=== PATIENT | male | born 2000 | race Caucasian/White ===

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

== ENCOUNTER → 2019-05-09 | Outpatient (CLI) | payer OTHER ==
[~2019-05-09] MED LIST: PROAAER10 INH; XARE15TA PO
[2019-05-13 11:35] LABS: DRVV SCREEN 130.6 SEC
[2019-05-13 11:40] LABS: PTT LUPUS TYPE ANTICOAG SCREEN 3.1 (0-1.2)
[2019-05-13 11:49] LABS: LUPUS CONFIRM RATIO 2.1
[2019-05-13 11:53] LABS: NORMALIZED RATIO 1.48 (0.00-1.20)
[2019-05-15 00:06] LABS: ANA (HEP2) Negative (.); ANTI THROMBIN 3 ANTIGEN IMMUNO 97 % (72-124); ANTI THROMBIN 3 FUNCT ACTIVITY 140 % (75-135); CARDIOLIPIN IGA ANTIBODY <9 APL U/mL (0-11); CARDIOLIPIN IGG ANTIBODY <9 GPL U/mL (0-14); CARDIOLIPIN IGM ANTIBODY <9 MPL U/mL (0-12); FACTOR II ACTIVITY 97 % (50-154); HCG SERUM TUMOR MARKER QUANT < 1 mIU/mL (0-3); PROTEIN C FUNCTIONAL ACTIVITY 119 % (73-180); PROTEIN S ANTIGEN FREE 97 % (57-157); PROTEIN S ANTIGEN TOTAL 71 % (60-150); PROTEIN S FUNCTIONAL ACTIVITY 148 % (63-140)
== END ==
LOC: M PLALAB 11:09
PROVIDERS: ATTEND Internal Medicine Pulmonary Disease
DX: I26.99 Other pulmonary embolism without acute cor pulmonale (principal)

== ENCOUNTER → 2019-05-21 | Outpatient (CLI) | payer OTHER | LOC: M CARPUL 10:54 | PROVIDERS: ATTEND Internal Medicine Pulmonary Disease | DX: I26.99 Other pulmonary embolism without acute cor pulmonale (principal) ==

== ENCOUNTER → 2019-06-10 | Outpatient (REF) | payer OTHER ==
[2019-06-10 17:48] LABS: BASO # 0.1 10^3/uL (0.0-0.2); BASO % 1.1 % (0.0-1.0); EOS # 0.2 10^3/uL (0.0-0.5); EOS % 2.3 % (0.0-3.0); HEMATOCRIT 46.7 % (42.0-52.0); HEMOGLOBIN 15.2 g/dl (13.5-17.5); LYMPH # 1.9 10^3/uL (1.5-5.0); LYMPH % 28.5 % (24.0-44.0); MEAN CORPUSCULAR HEMOGLOBIN 29.7 pg (27.0-33.0); MEAN CORPUSCULAR HGB CONC 32.5 g/dl (32.0-36.5); MEAN CORPUSCULAR VOLUME 91.4 fl (80.0-96.0); MONO # 0.7 10^3/uL (0.0-0.8); MONO % 11.3 % (0.0-5.0); NEUTROPHILS # 3.7 10^3/uL (1.5-8.5); NEUTROPHILS % 56.5 % (36.0-66.0); PLATELET COUNT, AUTOMATED 287 10^3/uL (150-450); RED BLOOD COUNT 5.11 10^6/uL (4.30-6.10); WHITE BLOOD COUNT 6.6 10^3/uL (4.0-10.0)
[2019-06-10 18:09] LABS: BLOOD UREA NITROGEN 14 MG/DL (7-18); CALCIUM LEVEL 8.8 MG/DL (8.5-10.1); CARBON DIOXIDE LEVEL 22 MEQ/L (21-32); CHLORIDE LEVEL 107 MEQ/L (98-107); CREATININE FOR GFR 1.15 MG/DL (0.70-1.30); GLUCOSE, FASTING 74 MG/DL (70-100); POTASSIUM SERUM 4.4 MEQ/L (3.5-5.1); SODIUM LEVEL 138 MEQ/L (136-145)
== END ==
LOC: M LAB REF 16:50
PROVIDERS: ATTEND Internal Medicine Pulmonary Disease
DX: I26.99 Other pulmonary embolism without acute cor pulmonale (principal)

== ENCOUNTER → 2019-07-08 | Outpatient (CLI) | payer OTHER ==
[~2019-07-08] MED LIST changes: +METHACHOLINE KIT (J7674) INH ONE
--- NOTE | 2019-07-08 10:47 | PFTRPT ---
Visit Date: 07/08/2019 Referring Doctor: Jazzmine Samaniego MD Height: 72.00 Inches Weight: 160.00 Lbs BSA: 1.94 Diagnosis: R06.2 Study of excellent technical quality. Under protocol, methacholine was administered. At a dose of 2.5 mg or 13.875 CDUs, a 30% decline in the FEV1 was noted. PC of 0.53 is significant. Flow rates did return to near baseline post- bronchodilator administration. IMPRESSION: Positive methacholine challenge study. MTDD
== END ==
LOC: M CARPUL 09:56
PROVIDERS: ATTEND Internal Medicine Pulmonary Disease
DX: R06.2 Wheezing (principal); I26.99 Other pulmonary embolism without acute cor pulmonale
CPT/HCPCS: 94070; J7674

== ENCOUNTER 2020-10-05 23:09 | Emergency (ER) | payer OTHER, SELFPAY ==
[~2020-10-05] VITALS: Ht 182.9 cm; Wt 76.7 kg
[~2020-10-05 23:09] MED LIST changes: -METHACHOLINE KIT (J7674) INH ONE
[2020-10-05] MEDS ORDERED: MORPHINE 4 MG/ML 1ML VIAL/SYRINGE (J2270) IV ONE (23:55)
[2020-10-06 00:17] LABS: BASO # 0.1 10^3/uL (0.0-0.2); BASO % 0.9 % (0.0-1.0); EOS # 0.2 10^3/uL (0.0-0.5); EOS % 1.8 % (0.0-3.0); HEMATOCRIT 46.4 % (42.0-52.0); HEMOGLOBIN 15.6 g/dl (13.5-17.5); LYMPH # 2.6 10^3/uL (1.5-5.0); LYMPH % 25.1 % (24.0-44.0); MEAN CORPUSCULAR HEMOGLOBIN 30.2 pg (27.0-33.0); MEAN CORPUSCULAR HGB CONC 33.6 g/dl (32.0-36.5); MEAN CORPUSCULAR VOLUME 89.7 fl (80.0-96.0); MONO % 9.8 % (2.0-8.0); NEUTROPHILS # 6.3 10^3/uL (1.5-8.5); NEUTROPHILS % 61.9 % (36.0-66.0); PLATELET COUNT, AUTOMATED 339 10^3/uL (150-450); RED BLOOD COUNT 5.17 10^6/uL (4.30-6.10); WHITE BLOOD COUNT 10.2 10^3/uL (4.0-10.0)
[2020-10-06 00:20] LABS: PARTIAL THROMBOPLASTIN TIME 25.9 SECONDS (24.2-38.5); PROTHROMBIN TIME 13.4 SECONDS (12.5-14.3)
--- NOTE | 2020-10-06 00:24 | REPVR ---
PROCEDURE INFORMATION: Exam: XR Left Elbow Exam date and time: 10/05/2020 11:41 PM Age: 20 years old Clinical indication: Pain; Elbow; Left; Additional info: Trauma TECHNIQUE: Imaging protocol: XR Left elbow. Views: 3 or more views. COMPARISON: No relevant prior studies available. FINDINGS: Bones/joints: Displaced fracture through the base of the olecranon process, extending to the joint space. Diastasis of the fracture fragments by approximately 1.5 cm. No dislocation. Soft tissues: Soft tissue swelling. IMPRESSION: Olecranon fracture, as described above. Electronically signed by: Deven Trevino On 10/06/2020 00:24:00 AM
[2020-10-06 00:25] LABS: ERYTHROCYTE SEDIMENTATION RATE 1 mm/hr (0-15)
[2020-10-06 00:38] LABS: ALBUMIN 4.7 GM/DL (3.2-5.2); ALT/SGPT 44 U/L (12-78); BILIRUBIN,DIRECT 0.3 MG/DL (0.0-0.2); BILIRUBIN,TOTAL 2.1 MG/DL (0.2-1.0); BLOOD UREA NITROGEN 20 MG/DL (7-18); CALCIUM LEVEL 10.2 MG/DL (8.5-10.1); CARBON DIOXIDE LEVEL 31 MEQ/L (21-32); CHLORIDE LEVEL 105 MEQ/L (98-107); CREATININE FOR GFR 1.55 MG/DL (0.70-1.30); GLOMERULAR FILTRATION RATE > 60.0 (>60); GLUCOSE, FASTING 59 MG/DL (70-100); POTASSIUM SERUM 3.9 MEQ/L (3.5-5.1); SODIUM LEVEL 140 MEQ/L (136-145); TOTAL PROTEIN 7.9 GM/DL (6.4-8.2)
[2020-10-06] MEDS ORDERED: D5W 1,000 ML IV SCH (00:50)
[2020-10-06 00:56] LABS: RSV AMPLIFICATION NEGATIVE (NEGATIVE)
[2020-10-06 01:32] VITALS: BP 131/67
== END 2020-10-06 01:39 | disposition short-term general hospital (02) ==
LOC: M ED 23:09
DX: S52.022A Displaced fracture of olecranon process without intraarticular extension of left ulna, initial encounter for closed fracture (principal); W10.8XXA Fall (on) (from) other stairs and steps, initial encounter; Y92.018 Other place in single-family (private) house as the place of occurrence of the external cause
CPT/HCPCS: 73080; 80048; 80076; 85025; 85610; 85652; 85730; 86140; 86850; 86900; 86901; 87631; 96374; 99284; J2270

== ENCOUNTER → 2021-03-03 | Outpatient (REF) ==
--- NOTE | 2021-03-04 06:12 | REP ---
INDICATION: SOB COMPARISON: 12/11/2018 TECHNIQUE: PA and lateral. FINDINGS: The mediastinum and cardiac silhouette are normal. The lung panchal are clear and without acute consolidation, effusion, or pneumothorax. The skeletal structures are intact and normal. IMPRESSION: No acute cardiopulmonary process. <Electronically signed by Memo Pinto > 03/04/21 [id number]
== END ==
LOC: M PLAIMG 11:55
PROVIDERS: ATTEND Internal Medicine
DX: R06.02 Shortness of breath (principal)

== ENCOUNTER → 2022-07-31 | Outpatient (REF) | payer OTHER ==
[2022-07-31 13:29] LABS: BASO % 0.5 % (0.0-1.0); EOS # 0.2 10^3/uL (0.0-0.5); EOS % 2.7 % (0.0-3.0); HEMATOCRIT 45.4 % (42.0-52.0); HEMOGLOBIN 15.2 g/dl (13.5-17.5); LYMPH # 1.8 10^3/uL (1.5-5.0); LYMPH % 30.1 % (24.0-44.0); MEAN CORPUSCULAR HEMOGLOBIN 29.6 pg (27.0-33.0); MEAN CORPUSCULAR HGB CONC 33.5 g/dl (32.0-36.5); MEAN CORPUSCULAR VOLUME 88.3 fl (80.0-96.0); MONO # 1.2 10^3/uL (0.0-0.8); MONO % 19.5 % (2.0-8.0); NEUTROPHILS # 2.8 10^3/uL (1.5-8.5); NEUTROPHILS % 46.9 % (36.0-66.0); PLATELET COUNT, AUTOMATED 240 10^3/uL (150-450); RED BLOOD COUNT 5.14 10^6/uL (4.30-6.10); WHITE BLOOD COUNT 5.9 10^3/uL (4.0-10.0)
[2022-07-31 14:10] LABS: ALBUMIN 3.8 G/DL (3.2-5.2); ALKALINE PHOSPHATASE 99 U/L (46-116); ALT/SGPT 42 U/L (7.0-40); AST/SGOT 25 U/L (<34); BLOOD UREA NITROGEN 12 MG/DL (9-23); CALCIUM LEVEL 8.5 MG/DL (8.5-10.1); CARBON DIOXIDE LEVEL 26 MMOL/L (20-31); CHLORIDE LEVEL 104 MMOL/L (98-107); FREE T4 0.91 NG/DL (0.89-1.76); GLOMERULAR FILTRATION RATE > 60.0 (>60); GLUCOSE, FASTING 80 MG/DL (60-100); SODIUM LEVEL 136 MMOL/L (136-145); THYROID STIMULATING HORMONE 2.191 uIU/ML (0.55-4.78); TOTAL 25(OH) VITAMIN D 15.2 NG/ML (20.0-100.0); TOTAL PROTEIN 6.7 G/DL (5.7-8.2)
== END ==
LOC: M LAB REF 12:05
PROVIDERS: ATTEND Nurse Practitioner Family
DX: E55.9 Vitamin D deficiency, unspecified (principal); R53.83 Other fatigue

== ENCOUNTER → 2022-09-11 | Outpatient (REF) | payer BC ==
[2022-09-11 17:37] LABS: BASO # 0.1 10^3/uL (0.0-0.2); BASO % 1.1 % (0.0-1.0); EOS # 0.3 10^3/uL (0.0-0.5); EOS % 2.8 % (0.0-3.0); HEMATOCRIT 49.2 % (42.0-52.0); HEMOGLOBIN 16.3 g/dl (13.5-17.5); LYMPH # 2.9 10^3/uL (1.5-5.0); LYMPH % 32.6 % (24.0-44.0); MEAN CORPUSCULAR HEMOGLOBIN 30.3 pg (27.0-33.0); MEAN CORPUSCULAR HGB CONC 33.1 g/dl (32.0-36.5); MEAN CORPUSCULAR VOLUME 91.4 fl (80.0-96.0); MONO # 0.9 10^3/uL (0.0-0.8); MONO % 9.5 % (2.0-8.0); NEUTROPHILS # 4.8 10^3/uL (1.5-8.5); NEUTROPHILS % 53.3 % (36.0-66.0); PLATELET COUNT, AUTOMATED 400 10^3/uL (150-450); RED BLOOD COUNT 5.38 10^6/uL (4.30-6.10)
[2022-09-11 17:58] LABS: C REACTIVE PROTEIN QUANTITATIV < 0.40 MG/DL (<1.0)
[2022-09-11 18:01] LABS: VITAMIN B12 LEVEL 367 PG/ML (211-911)
[2022-09-11 18:04] LABS: ALBUMIN 4.7 G/DL (3.2-5.2); ALKALINE PHOSPHATASE 126 U/L (46-116); ALT/SGPT 20 U/L (7.0-40); AST/SGOT < 8 U/L (<34); BILIRUBIN,TOTAL 1.8 MG/DL (0.3-1.2); BLOOD UREA NITROGEN 13 MG/DL (9-23); CALCIUM LEVEL 9.9 MG/DL (8.5-10.1); CARBON DIOXIDE LEVEL 31 MMOL/L (20-31); CHLORIDE LEVEL 103 MMOL/L (98-107); CREATININE FOR GFR 1.07 MG/DL (0.70-1.30); GLOMERULAR FILTRATION RATE > 60.0 (>60); GLUCOSE, FASTING 69 MG/DL (60-100); POTASSIUM SERUM 4.6 MMOL/L (3.5-5.1); SODIUM LEVEL 141 MMOL/L (136-145); TOTAL PROTEIN 7.5 G/DL (5.7-8.2)
[2022-09-11 18:16] LABS: ERYTHROCYTE SEDIMENTATION RATE < 1 mm/hr (0-15)
[2022-09-12 20:26] LABS: IRON (FE) 196 UG/DL (65-175); PERCENT SATURATION 57.5 % (19.7-50.0); TOTAL IRON BINDING CAPACITY 341 UG/DL (250-425)
[2022-09-12 20:28] LABS: FERRITIN 50.4 NG/ML (10.5-307.3)
[2022-09-14 16:08] LABS: ANCA-ATYPICAL <1:20 titer (Neg:<1:20); CYTOPLASMIC NEUTROP AB ANCA-C <1:20 titer (Neg:<1:20); PERINUCLEAR AB ANCA-P <1:20 titer (Neg:<1:20)
== END ==
LOC: M LAB REF 16:51
PROVIDERS: ATTEND Nurse Practitioner Family
DX: K92.1 Melena (principal); R94.5 Abnormal results of liver function studies

== ENCOUNTER → 2022-09-11 | Outpatient (CLI) | payer BC | LOC: M RAD 11:00 | PROVIDERS: ATTEND Nurse Practitioner Family | DX: M25.562 Pain in left knee (principal) ==

== ENCOUNTER → 2022-09-13 | Outpatient (CLI) | payer BC | LOC: M RAD 14:33 | PROVIDERS: ATTEND Nurse Practitioner Family | DX: K92.1 Melena (principal) ==

== ENCOUNTER → 2022-09-17 | Outpatient (REF) | payer BC | LOC: M LAB REF 12:49 | PROVIDERS: ATTEND Nurse Practitioner Family | DX: K92.1 Melena (principal) ==

== ENCOUNTER 2022-11-29 20:04 | Emergency (ER) | payer BC ==
[~2022-11-29] VITALS: Ht 182.9 cm; Wt 74.9 kg
[2022-11-29 20:05] VITALS: TEMP 97.3
[2022-11-29] MEDS ORDERED: METH54TA5 (20:31)
[2022-11-29] MEDS ORDERED: BUPR150T12 (20:31)
[2022-11-29] MEDS ORDERED: FAMO20TA5 (20:31)
[2022-11-29] MEDS ORDERED: ESCITALOPRAM (20:31)
[2022-11-29 21:01] LABS: BASO # 0.1 10^3/uL (0.0-0.2); BASO % 1.2 % (0.0-1.0); EOS # 0.3 10^3/uL (0.0-0.5); EOS % 4.3 % (0.0-3.0); HEMATOCRIT 44.1 % (42.0-52.0); HEMOGLOBIN 14.8 g/dl (13.5-17.5); LYMPH # 2.8 10^3/uL (1.5-5.0); LYMPH % 36.5 % (24.0-44.0); MEAN CORPUSCULAR HGB CONC 33.6 g/dl (32.0-36.5); MEAN CORPUSCULAR VOLUME 89.3 fl (80.0-96.0); MONO # 0.7 10^3/uL (0.0-0.8); MONO % 9.7 % (2.0-8.0); NEUTROPHILS # 3.6 10^3/uL (1.5-8.5); PLATELET COUNT, AUTOMATED 304 10^3/uL (150-450); RED BLOOD COUNT 4.94 10^6/uL (4.30-6.10); WHITE BLOOD COUNT 7.6 10^3/uL (4.0-10.0)
[2022-11-29 21:16] LABS: BLOOD UREA NITROGEN 14 MG/DL (9-23); CALCIUM LEVEL 8.9 MG/DL (8.5-10.1); CARBON DIOXIDE LEVEL 27 MMOL/L (20-31); CHLORIDE LEVEL 107 MMOL/L (98-107); CREATININE FOR GFR 1.02 MG/DL (0.70-1.30); GLOMERULAR FILTRATION RATE > 60.0 (>60); GLUCOSE, FASTING 89 MG/DL (60-100); POTASSIUM SERUM 4.4 MMOL/L (3.5-5.1); SODIUM LEVEL 138 MMOL/L (136-145)
[2022-11-29 21:35] LABS: CPK CREATINE PHOSPHOKINASE 97 U/L (46-171); MB/CK RELATIVE INDEX 1.03 (< OR =4)
[2022-11-29 22:12] LABS: CK-MB VALUE MASS 1.3 NG/ML (<3.6)
[2022-11-29 22:15] LABS: CPK CREATINE PHOSPHOKINASE 94 U/L (46-171); MB/CK RELATIVE INDEX 1.38 (< OR =4)
[2022-11-30] MEDS ORDERED: HOLTER MONITOR XX (00:16)
[2022-11-30 01:15] VITALS: BP 116/69; O2SAT 100
== END 2022-11-30 01:30 | disposition home or self-care (01) ==
LOC: M ED 20:04
DX: R07.89 Other chest pain (principal); R06.00 Dyspnea, unspecified; R00.2 Palpitations; Z79.51 Long term (current) use of inhaled steroids; Z79.899 Other long term (current) drug therapy

== ENCOUNTER 2023-05-16 08:47 | Day surgery (SDC) | payer BC ==
[~2023-05-16] VITALS: Ht 182.9 cm; Wt 73.5 kg
[~2023-05-16 08:47] MED LIST changes: +BUPR150T12; +CITA20TA7 PO; +DEXM1CAP16 PO; +ESCITALOPRAM; +FAMO20TA5; +HOLTER MONITOR XX; +LIDOCAINE 2% 100MG/5ML SDV (FOR ANES.) As Ordered ONE; +METH54TA5; +NS 1,000 ML IV ONE; +OMEP40CA5 PO; +TRAZ-252 PO; +propofoL 200 MG/20 ML VIAL As Ordered ONE
[2023-05-16] MEDS ORDERED: ALBUTEROL 6.7GM INHALER **FOR ANES. CART/OMNICELL ONLY As Ordered ONE (10:29)
[2023-05-16] MEDS ORDERED: fentaNYL 100 MCG/2 ML INJECTION As Ordered ONE (10:54)
[2023-05-16 11:40] VITALS: BP 119/68; O2SAT 100
== END 2023-05-16 11:47 | disposition home or self-care (01) ==
LOC: M OPP 08:47
PROVIDERS: ATTEND Internal Medicine Gastroenterology
DX: R12 Heartburn (principal); K22.89 Other specified disease of esophagus; F17.220 Nicotine dependence, chewing tobacco, uncomplicated; Z79.1 Long term (current) use of non-steroidal anti-inflammatories (NSAID); Z79.899 Other long term (current) drug therapy
CPT/HCPCS: 43239; 88305; J3010

== ENCOUNTER → 2023-10-19 | Outpatient (REF) | payer BC ==
[~2023-10-19] MED LIST changes: -LIDOCAINE 2% 100MG/5ML SDV (FOR ANES.) As Ordered ONE; -NS 1,000 ML IV ONE; -propofoL 200 MG/20 ML VIAL As Ordered ONE
[2023-10-19 17:09] LABS: APPEARANCE, URINE CLEAR (CLEAR); BACTERIA, URINE AUTO NEGATIVE (NEGATIVE); BILIRUBIN, URINE AUTO NEGATIVE (NEGATIVE); BLOOD, URINE BLOOD NEGATIVE (NEGATIVE); COLOR, URINE STRAW (YELLOW); GLUCOSE, URINE (UA) AUTO NEGATIVE (NEGATIVE); KETONE, URINE AUTO NEGATIVE (NEGATIVE); LEUKOCYTE ESTERASE, URINE AUTO NEGATIVE (NEGATIVE); NITRITE, URINE AUTO NEGATIVE (NEGATIVE); PROTEIN, URINE AUTO NEGATIVE (NEGATIVE); RBC, URINE AUTO 0 /HPF (0-3); SPECIFIC GRAVITY URINE AUTO 1.003 (1.002-1.035); SQUAMOUS EPITHELIAL CELL UR AU 0 /HPF (0-6); UROBILINOGEN, URINE AUTO 0.2 mg/dL (0.0-2.0); WBC, URINE AUTO 0 /HPF (0-3)
[2023-10-19 17:18] LABS: BASO # 0.1 10^3/uL (0.0-0.2); BASO % 1.1 % (0.0-1.0); EOS # 0.1 10^3/uL (0.0-0.5); EOS % 2.4 % (0.0-3.0); HEMATOCRIT 45.3 % (42.0-52.0); HEMOGLOBIN 15.1 g/dl (13.5-17.5); LYMPH # 1.9 10^3/uL (1.5-5.0); LYMPH % 35.9 % (24.0-44.0); MEAN CORPUSCULAR HEMOGLOBIN 29.7 pg (27.0-33.0); MEAN CORPUSCULAR HGB CONC 33.3 g/dl (32.0-36.5); MONO # 0.6 10^3/uL (0.0-0.8); MONO % 10.7 % (2.0-8.0); NEUTROPHILS # 2.7 10^3/uL (1.5-8.5); NEUTROPHILS % 49.5 % (36.0-66.0); PLATELET COUNT, AUTOMATED 311 10^3/uL (150-450); RED BLOOD COUNT 5.09 10^6/uL (4.30-6.10); WHITE BLOOD COUNT 5.4 10^3/uL (4.0-10.0)
[2023-10-19 17:47] LABS: ALBUMIN 4.3 G/DL (3.2-5.2); ALKALINE PHOSPHATASE 94 U/L (46-116); ALT/SGPT 15 U/L (7.0-40); AST/SGOT 14 U/L (<34); BLOOD UREA NITROGEN 16 MG/DL (9-23); CALCIUM LEVEL 9.1 MG/DL (8.5-10.1); CARBON DIOXIDE LEVEL 29 MMOL/L (20-31); CHLORIDE LEVEL 101 MMOL/L (98-107); CREATININE FOR GFR 0.97 MG/DL (0.70-1.30); GLOMERULAR FILTRATION RATE > 60.0 (>60); GLUCOSE, FASTING 72 MG/DL (60-100); IMMUNOGLOBULIN A 72.6 MG/DL (40-350); MAGNESIUM LEVEL 2.2 MG/DL (1.8-2.4); POTASSIUM SERUM 4.4 MMOL/L (3.5-5.1); RHEUMATOID FACTOR QUANT 6.6 IU/ML (<14); SODIUM LEVEL 136 MMOL/L (136-145)
[2023-10-19 17:49] LABS: THYROID STIMULATING HORMONE 1.477 uIU/ML (0.55-4.78)
[2023-10-22 20:16] LABS: CYCLIC CITRULLINATED PEPTIDE 10 units (0-19); SSA SJOGRENS A <0.2 AI (0.0-0.9); SSB SJOGRENS B <0.2 AI (0.0-0.9); TISSUE TRANSGLUTAMINASE IgA <2 U/mL (0-3)
== END ==
LOC: M LAB REF 16:19
PROVIDERS: ATTEND Nurse Practitioner Family
DX: R82.90 Unspecified abnormal findings in urine (principal); R69 Illness, unspecified

== ENCOUNTER 2023-12-16 23:55 | Inpatient (IN) | payer BC ==
[~2023-12-16] VITALS: Ht 182.9 cm; Wt 76.4 kg
[2023-12-17 01:04] LABS: HEMATOCRIT 43.2 % (42.0-52.0); HEMOGLOBIN 14.6 g/dl (13.5-17.5); MEAN CORPUSCULAR HEMOGLOBIN 29.6 pg (27.0-33.0); MEAN CORPUSCULAR HGB CONC 33.8 g/dl (32.0-36.5); MEAN CORPUSCULAR VOLUME 87.6 fl (80.0-96.0); PLATELET COUNT, AUTOMATED 308 10^3/uL (150-450); RED BLOOD COUNT 4.93 10^6/uL (4.30-6.10); WHITE BLOOD COUNT 8.7 10^3/uL (4.0-10.0)
[2023-12-17 01:25] LABS: BARBITURATES URINE NEGATIVE (NEGATIVE); BENZODIAZEPINES URINE NEGATIVE (NEGATIVE); COCAINE METABOLITE URINE NEGATIVE (NEGATIVE); METHADONE URINE NEGATIVE (NEGATIVE); OPIATES URINE NEGATIVE (NEGATIVE)
[2023-12-17 01:26] LABS: CANNABINOIDS URINE NEGATIVE (NEGATIVE); PHENCYCLIDINE URINE NEGATIVE (NEGATIVE)
[2023-12-17 01:27] LABS: ETHYL ALCOHOL (ETHANOL) < 0.003 % (0.000-0.010)
[2023-12-17 01:28] LABS: ALBUMIN 4.2 G/DL (3.2-5.2); ALKALINE PHOSPHATASE 101 U/L (46-116); ALT/SGPT 14 U/L (7.0-40); AST/SGOT < 8 U/L (<34); BILIRUBIN,DIRECT 0.5 MG/DL (<0.4); BILIRUBIN,TOTAL 1.5 MG/DL (0.3-1.2); BLOOD UREA NITROGEN 18 MG/DL (9-23); CALCIUM LEVEL 9.4 MG/DL (8.5-10.1); CARBON DIOXIDE LEVEL 27 MMOL/L (20-31); CHLORIDE LEVEL 106 MMOL/L (98-107); GLOMERULAR FILTRATION RATE > 60.0 (>60); GLUCOSE, FASTING 95 MG/DL (60-100); POTASSIUM SERUM 4.2 MMOL/L (3.5-5.1); SALICYLATE LEVEL < 3.0 MG/DL (<30); SODIUM LEVEL 139 MMOL/L (136-145); TOTAL PROTEIN 6.8 G/DL (5.7-8.2)
[2023-12-17 01:30] LABS: THYROID STIMULATING HORMONE 3.096 uIU/ML (0.55-4.78)
[2023-12-17 01:31] LABS: AMPHETAMINES LEVEL URINE POSITIVE (NEGATIVE)
[2023-12-17] MEDS ORDERED: ESZO1TAB6 PO (02:24)
[2023-12-17] MEDS ORDERED: FLUO-365 PO (02:24)
[2023-12-17] MEDS ORDERED: AMPH1CAP5 PO (02:24)
[2023-12-17] MEDS ORDERED: PROP10TA56 PO (02:24)
[2023-12-17] MEDS ORDERED: AMPH1CAP9 PO (02:24)
[2023-12-17] MEDS ORDERED: HOME MED LIST COMPLETE! XX SCH (02:25)
[2023-12-17] MEDS ORDERED: ADDE1TAB14 PO (11:50)
[2023-12-17] MEDS: AMPHETAMINE/DEXTROAMPHETAMINE 5 MG *ER* CAPSULE (ADDERALL XR) PO SCH (12:18)
[2023-12-17] MEDS: FLUoxetine 20MG CAP PO SCH (12:18)
[2023-12-17] MEDS: PROPRANOLOL 10 MG TAB PO SCH ×2 (12:19→21:12)
[2023-12-17] MEDS: ADDERALL 5 MG TAB PO SCH (13:10)
[2023-12-17] MEDS ORDERED: ACETAMINOPHEN TAB 650MG DOSE (2X325MG) PO PRN (14:50)
[2023-12-17] MEDS ORDERED: MOM 30ML SUSPENSION UDC PO PRN (14:50)
[2023-12-17] MEDS ORDERED: IBUPROFEN 400MG TAB PO PRN (14:50)
[2023-12-17] MEDS ORDERED: diphenhydrAMINE 25MG CAP PO PRN (14:50)
[2023-12-17] MEDS ORDERED: MAALOX 30 ML SUSP *UDC PO PRN (14:50)
[2023-12-17] MEDS ORDERED: PILL CUTTER 1 EACH XX PRN (15:00)
[2023-12-17 15:58] VITALS: BP 126/81; TEMP 97.9; O2SAT 97
[2023-12-17] MEDS: traZODone 50 MG TAB PO PRN (21:12)
[2023-12-18 05:54] VITALS: BP 104/58; TEMP 97.5; O2SAT 98
[2023-12-18] MEDS: AMPHETAMINE/DEXTROAMPHETAMINE 5 MG *ER* CAPSULE (ADDERALL XR) PO SCH (09:39)
[2023-12-18] MEDS: FLUoxetine 20MG CAP PO SCH (09:39)
[2023-12-18] MEDS: ADDERALL 5 MG TAB PO SCH (12:34)
[2023-12-18 12:45] VITALS: BP 127/78
[2023-12-18 18:30] VITALS: BP 119/65; TEMP 97.4; O2SAT 100
[2023-12-18] MEDS: CARIPRAZINE 1.5MG CAPSULE (VRAYLAR) PO SCH (20:44)
[2023-12-18] MEDS: zolPIDEM TARTRATE 5 MG TAB PO PRN (20:44)
[2023-12-18 20:45] VITALS: BP 131/73
[2023-12-19 06:43] VITALS: BP 119/69; TEMP 98.3; O2SAT 98
[2023-12-19] MEDS ORDERED: VRAY1.5C PO (08:54)
== END 2023-12-19 11:16 | disposition home or self-care (01) | DRG 754 ==
LOC: M ED 23:55 → M ED INP 12-17 14:46 → M PSY 12-17 15:54
PROVIDERS: ADMIT Student in an Organized Health Care Education/Training Program; ATTEND Student in an Organized Health Care Education/Training Program
DX: F32.A Depression, unspecified (principal); F41.9 Anxiety disorder, unspecified; F90.9 Attention-deficit hyperactivity disorder, unspecified type; F43.10 Post-traumatic stress disorder, unspecified; R45.851 Suicidal ideations; F17.290 Nicotine dependence, other tobacco product, uncomplicated; Z79.899 Other long term (current) drug therapy; E80.6 Other disorders of bilirubin metabolism

== ENCOUNTER 2024-02-19 02:00 | Emergency (ER) | payer BC ==
[~2024-02-19] VITALS: Ht 182.9 cm; Wt 75.0 kg
[~2024-02-19 02:00] MED LIST changes: +ADDE1TAB14 PO; +AMPH1CAP5 PO; +AMPH1CAP9 PO; +ESZO1TAB6 PO; +FLUO-365 PO; +PROP10TA56 PO; +VRAY1.5C PO
[2024-02-19 02:10] VITALS: BP 146/90; TEMP 97.8; O2SAT 97
[2024-02-19 03:13] LABS: HEMATOCRIT 42.1 % (42.0-52.0); HEMOGLOBIN 14.2 g/dl (13.5-17.5); MEAN CORPUSCULAR HEMOGLOBIN 30.3 pg (27.0-33.0); MEAN CORPUSCULAR HGB CONC 33.7 g/dl (32.0-36.5); MEAN CORPUSCULAR VOLUME 89.8 fl (80.0-96.0); PLATELET COUNT, AUTOMATED 277 10^3/uL (150-450); RED BLOOD COUNT 4.69 10^6/uL (4.30-6.10); WHITE BLOOD COUNT 8.4 10^3/uL (4.0-10.0)
[2024-02-19 03:30] LABS: AMPHETAMINES LEVEL URINE NEGATIVE (NEGATIVE)
[2024-02-19 03:32] LABS: ETHYL ALCOHOL (ETHANOL) 0.005 % (0.000-0.010)
[2024-02-19 03:33] LABS: ALBUMIN 4.4 G/DL (3.2-5.2); ALKALINE PHOSPHATASE 100 U/L (46-116); ALT/SGPT 35 U/L (7.0-40); AST/SGOT 20 U/L (<34); BILIRUBIN,DIRECT 0.3 MG/DL (<0.4); BILIRUBIN,TOTAL 0.8 MG/DL (0.3-1.2); BLOOD UREA NITROGEN 11 MG/DL (9-23); CALCIUM LEVEL 9.3 MG/DL (8.5-10.1); CARBON DIOXIDE LEVEL 28 MMOL/L (20-31); CHLORIDE LEVEL 107 MMOL/L (98-107); CREATININE FOR GFR 1.06 MG/DL (0.70-1.30); GLOMERULAR FILTRATION RATE > 60.0 (>60); GLUCOSE, FASTING 93 MG/DL (60-100); POTASSIUM SERUM 4.1 MMOL/L (3.5-5.1); SALICYLATE LEVEL < 3.0 MG/DL (<30); SODIUM LEVEL 139 MMOL/L (136-145); TOTAL PROTEIN 7.2 G/DL (5.7-8.2)
[2024-02-19 03:34] LABS: BARBITURATES URINE NEGATIVE (NEGATIVE); BENZODIAZEPINES URINE NEGATIVE (NEGATIVE); CANNABINOIDS URINE NEGATIVE (NEGATIVE); COCAINE METABOLITE URINE NEGATIVE (NEGATIVE); METHADONE URINE NEGATIVE (NEGATIVE); OPIATES URINE NEGATIVE (NEGATIVE); PHENCYCLIDINE URINE NEGATIVE (NEGATIVE)
[2024-02-19 03:36] LABS: THYROID STIMULATING HORMONE 2.202 uIU/ML (0.55-4.78)
[2024-02-19] MEDS ORDERED: FLUT1BLS4 INH (07:05)
[2024-02-19] MEDS ORDERED: ATOM40CA9 PO (07:05)
[2024-02-19] MEDS ORDERED: QUET50TA4 PO (07:05)
[2024-02-19] MEDS ORDERED: BUSP15TA47 PO (07:05)
[2024-02-19] MEDS ORDERED: LAMO100T3 PO (07:05)
[2024-02-19] MEDS ORDERED: HOME MED LIST COMPLETE! XX SCH (07:10)
[2024-02-19] MEDS: ATOMOXETINE HCL 40 MG CAP (STRATTERA) PO SCH (08:30)
[2024-02-19] MEDS: busPIRone 5 MG TAB PO SCH (08:31)
[2024-02-19] MEDS: FLUoxetine 20MG CAP PO SCH (08:31)
[2024-02-19] MEDS: lamoTRIgine 100MG TAB PO SCH (08:31)
[2024-02-19] MEDS ORDERED: lamoTRIgine 25MG TAB PO SCH (09:00)
[2024-02-19] MEDS ORDERED: lamoTRIgine 100MG TAB PO SCH (09:00)
[2024-02-19] MEDS ORDERED: QUEtiapine FUMARATE 50MG TAB PO SCH (21:00)
[2024-02-20] MEDS ORDERED: lamoTRIgine 25MG TAB PO SCH (09:00)
== END 2024-02-19 13:41 | disposition home or self-care (01) ==
LOC: M ED 02:00
DX: F32.A Depression, unspecified (principal); Z79.899 Other long term (current) drug therapy

== ENCOUNTER → 2024-04-09 | Outpatient (CLI) | payer BC ==
[~2024-04-09] MED LIST changes: +ATOM40CA9 PO; +BUSP15TA47 PO; +FLUT1BLS4 INH; +LAMO100T3 PO; +QUET50TA4 PO
== END ==
LOC: M SLEEP HO 11:01
PROVIDERS: ATTEND Nurse Practitioner Family
DX: R53.83 Other fatigue (principal)

== ENCOUNTER → 2024-04-09 | Outpatient (CLI) | payer BC | LOC: M EKG 11:23 | PROVIDERS: ATTEND Nurse Practitioner Family | DX: Z04.3 Encounter for examination and observation following other accident (principal) ==

== ENCOUNTER → 2024-05-07 | Outpatient (CLI) | payer BC | LOC: M EKG 09:46 | PROVIDERS: ATTEND Nurse Practitioner Family | DX: Z00.00 Encounter for general adult medical examination without abnormal findings (principal); Z04.9 Encounter for examination and observation for unspecified reason ==

== ENCOUNTER 2024-09-12 10:54 | Emergency (ER) | payer BC ==
[~2024-09-12] VITALS: Ht 182.9 cm; Wt 75.4 kg
[~2024-09-12 10:54] MED LIST changes: -AMPH1CAP4; -CLON0.5T2; -GABA-1171 PO
[2024-09-12] MEDS ORDERED: AMPH1CAP4 (11:10)
[2024-09-12] MEDS ORDERED: CLON0.5T2 (11:10)
[2024-09-12] MEDS ORDERED: AUGMENTIN 875 MG TAB PO ONE (14:40)
[2024-09-12] MEDS ORDERED: KETOROLAC 30 MG/ML 1ML VIAL IM ONE (14:40)
[2024-09-12] MEDS ORDERED: GABA-1171 PO (18:26)
[2024-09-12 18:32] VITALS: BP 133/87; TEMP 97.8; O2SAT 96
== END 2024-09-12 18:38 | disposition home or self-care (01) ==
LOC: M ED 10:54
DX: M51.26 Other intervertebral disc displacement, lumbar region (principal); M21.372 Foot drop, left foot; G57.32 Lesion of lateral popliteal nerve, left lower limb; Z79.899 Other long term (current) drug therapy

== ENCOUNTER → 2024-09-12 | Outpatient (CLI) | payer BC ==
[~2024-09-12] MED LIST changes: +AMPH1CAP4; +CLON0.5T2; +GABA-1171 PO
== END ==
LOC: M WUC 10:30
PROVIDERS: ATTEND Nurse Practitioner Family
DX: M25.572 Pain in left ankle and joints of left foot (principal)